=== PATIENT | female | born 1955 | race African-American/Black ===

== ENCOUNTER 2019-10-18 17:51 | Emergency (ER) | payer BC ==
[~2019-10-18] VITALS: Ht 154.9 cm; Wt 84.0 kg
[2019-10-18] MEDS ORDERED: TETANUS/DIPHTHERIA TOX ADULT 0.5 ML SYR IM ONE (18:45)
[2019-10-18] MEDS ORDERED: BACTRIM DS TAB1 EACH PO (18:49)
--- NOTE | 2019-10-18 18:50 | Emergency Department Note ---
History of Present Illnes History of Present Illness Chief Complaint: Laceration rgt thumb s/p broken glass fell History of Present Illness This is a 64 year old female. was doing well prior to this. Historian: Patient Arrival Mode: Car History limited by: condition of the patient (normal) Mobile Manager Required: No Onset (how long ago): hour(s) (1) Location: rgt thumb Quality: sharp Radiation: Reports non-radiation Severity: mild Onset quality: sudden Duration (how long): hour(s) (1) Timing of current episode: constant Progression: unchanged Chronicity: new Context: Reports trauma/injury; Denies recent illness, Denies recent surgery, Denies recent immobilization, Denies recent travel Relieving factors: none Exacerbating factors: movement Associated symptoms: Reports denies other symptoms Treatments prior to arrival: none Past Medical/Family History Physician Review I have reviewed the patient's past medical and family history. Any updates have been documented here. Past Medical History Recent Fever: No Clinical Suspicion of Infectio: No New/Unexplained Change in Ment: No Past Medical History: None Past Surgical History: None Social History Smoking Cessation: Never Smoker Counseling Performed: No Any Illegal Drug Use: No TB Exposure/Symptoms: No Physically hurt or threatened: No Family History Family history of heart diseas: No Other Any Pre-Existing Lines (PICC,: No Is patient up to date on immun: No Review of Systems Review of Systems Constitutional: Reports no symptoms EENTM: Reports no symptoms Cardiovascular: Reports no symptoms Respiratory: Reports no symptoms Gastrointestinal: Reports no symptoms Genitourinary: Reports no symptoms Musculoskeletal: Reports no symptoms Integumentary: Reports as per HPI Neurological: Reports no symptoms Psychological: Reports no symptoms Endocrine: Reports no symptoms Hematological/Lymphatic: Reports no symptoms Review of other systems: All other systems negative Physical Exam Related Data Allergies: Coded Allergies: No Known Allergies (Unverified , 10/18/19) Vital signs reviewed: Yes Physical Exam CONSTITUTIONAL Constitutional: Present well-developed, Present well-nourished HENT HENT: Present normocephalic, Present atraumatic, Present oropharynx clear/moist, Present nose normal HENT L/R: Present left ext ear normal, Present right ext ear normal EYES Eyes: Reports PERRL, Reports conjunctivae normal NECK Neck: Present ROM normal PULMONARY Pulmonary: Present effort normal, Present breath sounds normal CARDIOVASCULAR Cardiovascular: Present regular rhythm, Present heart sounds normal, Present capillary refill normal, Present normal rate GASTROINTESTINAL Abdominal: Present soft, Present nontender, Present bowel sounds normal GENITOURINARY Genitourinary: Present exam deferred SKIN Skin: Present warm, Present dry, Present other (2.5 cm laceration rgt thumb(dorsal and at the base)) MUSCULOSKELETAL Musculoskeletal: Present ROM normal NEUROLOGICAL Neurological: Present alert, Present oriented x 3, Present no gross motor or sensory deficits PSYCHOLOGICAL Psychological: Present mood/affect normal, Present judgement normal Procedures Laceration Laceration: Laceration 1 Site: lower extremity (rgt thumb) Side: right Size (cm): 2.5 Description: linear, clean Depth: simple, single layer Pre-repair: wound exposed, irrigated extensively (and cleaned with hydrogen peroxide) Skin layer closed with: other (dermabond) Additional comments no complications Assessment & Plan Medical Decision Making MDM LACERATION Assessment & Plan Final Impression: (1) Thumb laceration Depart Disposition: HOME, SELF-residential Meds Active Scripts Sulfamethoxazole/Trimethoprim (BACTRIM DS TABLET) 1 Each Tablet, 1 TAB PO Q12H, #20 TAB Prov:JEANETTE PEDRO 10/18/19 JEANETTE PEDRO Oct 18, 2019 18:50
--- OUTSIDE RECORDS SUMMARY | 2019-10-18 18:56 | XMS REPORT | Continuity of Care Document ---
Author Author [facility] Organization [facility] Address [address] [place] [address] Phone Unavailable Care Team Providers Care Package Delivery Room Service Runner Name Role Phone Unavailable Unavailable Problems This patient has no known problems. Allergies, Adverse Reactions, Alerts This patient has no known allergies or adverse reactions. Medications This patient has no known medications. Procedures This patient has no known procedures. Encounters Start Date/Time End Date/Time Encounter Type Admission Type [facility] Care Department Encounter ID Source 2019-01-20 23:28:00 2019-01-20 23:28:00 Emergency E [id number] [facility] Results This patient has no known results.
[2019-10-18] MEDS ORDERED: TETANUS/DIPHTHERIA TOX ADULT 0.5 ML SYR ONE (18:57)
== END 2019-10-18 19:04 | disposition home or self-care (01) ==
LOC: FSED 17:51
DX: S61.011A Laceration without foreign body of right thumb without damage to nail, initial encounter (principal); W25.XXXA Contact with sharp glass, initial encounter; Y92.008 Other place in unspecified non-institutional (private) residence as the place of occurrence of the external cause
CPT/HCPCS: 90471; 96372; 99283